=== PATIENT | male | born 1970 | race Asian ===

== ENCOUNTER 2021-05-27 09:14 | Outpatient (CLI) | payer BC, MEDICAID, SELFPAY | END 2021-05-27 09:15 | disposition home or self-care (01) | PROVIDERS: PCP Family Medicine; Visit Provider Physician Assistant | DX: H90.3 Sensorineural hearing loss, bilateral (principal) | CPT/HCPCS: 92557; 92567 ==

== ENCOUNTER 2021-06-10 08:05 | Outpatient (RCR) | payer BC, MEDICAID, SELFPAY | END 2021-09-08 23:59 | disposition home or self-care (01) | LOC: ANHAUDASC 08:05 | PROVIDERS: PCP Family Medicine; Visit Provider Physician Assistant | DX: Z46.1 Encounter for fitting and adjustment of hearing aid (principal) | CPT/HCPCS: V5160; V5261 ==

== ENCOUNTER 2021-10-16 07:20 | Outpatient (RCR) | payer BC, MEDICAID, SELFPAY | END 2022-01-14 23:59 | disposition home or self-care (01) | LOC: ANHAUDASC 07:20 | PROVIDERS: PCP Family Medicine; Visit Provider Family Medicine | DX: Z46.1 Encounter for fitting and adjustment of hearing aid (principal) | CPT/HCPCS: 99199 ==